=== PATIENT | female | born 1950 | race Two or more races ===

== ENCOUNTER 2017-05-14 09:18 | Day surgery (SDC) | payer MEDICARE, MEDICAID ==
[2017-05-14 09:56] VITALS: BP 125/97
[2017-05-14 11:08] LABS: INR 0.95 (0.5-1.4); PROTHROMBIN TIME (TEST) 9.9 SECONDS (9.5-11.5)
--- NOTE | 2017-05-14 11:29 | History and Physical ---
History of Present Illness - HPI Chief Complaint: DIRECT ADMISSION FOR EXCISION BX LEFT BREAST MASS POSSIBLE MASTECTOMY HPI: THIS IS A 66 YEAR OLD FEMALE WHO IS A RESIDENT OF [facility] WHO IS A DIRECT ADMISSION FOR EXCISION BX LEFT BREAST MASS POSSIBLE MASTECTOMY. UPON EXAMINATION PATIENT IS AWAKE, NONVERBAL, AFEBRILE, IN NO ACUTE DISTRESS. Vital Signs: Last Vital Signs Temp Pulse 73 05/14/17 10:35 Resp 18 05/14/17 10:35 BP 125/97 05/14/17 09:55 Pulse Ox 93 05/14/17 10:35 Past Medical History Cardiovascular: Report: HTN Pulmonary: Report: No Pertinent Hx [employer]: Report: Seizure GI: Report: Gastritis, Other (DYSPHAGIA) Psych: Report: No Pertinent Hx Musculoskeletal: Report: Osteoarthritis Infectious Disease: Report: No Pertinent Hx Other History: profound idd peg status hypercholesteremia oa asthma upper and lower contractures - Past Surgical History Past Surgical History: Other (peg) Family Medical History - Family Member noncontributory History Unknown: Yes (noncontributory) Social History Smoke: No Alcohol: None Drugs: None Lives: Custodial Health Maintenance Health Maintenance: Pneumococcal Vaccine, Mammogram - Allergies Allergies/Adverse Reactions: Allergies Allergy/AdvReac Type Severity Reaction Status Date / Time No Known Allergies Allergy Verified 05/14/17 09:54 Review of Systems - Review of Systems Constitutional: Denies: Fever, Chills Eyes: Denies: Pain, Vision Change ENT: Denies: Ear Pain, Ear Discharge, Nose Pain Respiratory: Denies: Cough, Dry, Shortness of Breath Cardiovascular: Denies: Chest Pain Gastrointestinal: Denies: Nausea, Vomiting Genitourinary: Report: Incontinence. Denies: Dysuria, Frequency Musculoskeletal: Denies: Neck Pain, Shoulder Pain, Arm Pain, Back Pain Skin: Denies: Rash Neurological: Report: Weakness. Denies: Numbness Physical Exam - Physical Exam HEENT: Report: Ears Nose Throat within normal limits Neck: Report: Within normal limits Cardiovascular Systems: Report: +s1/s2 noted Respiratory: Report: Breath Sounds are within normal limits, Clear to Auscultation of lung rodriguez Abdomen: Report: Non-tender to palpation, Bowel Sounds are within normal limits , PEG site is clean Back: Report: Inspection of back is within normal limits. Extremities: Report: Non-tender to palpation. Skin: Report: Warm, Dry, No Rashes noted of the skin Neuro/Psych: Report: Mood affect is within normal limits - Lab Results All Lab Results last 24 hours: Laboratory Last Values PT 9.9 SECONDS (9.5-11.5) 05/14/17 10:40 INR 0.95 (0.5-1.4) 05/14/17 10:40 PTT (Actin FS) 25.6 SECONDS (26.0-38.0) L 05/14/17 10:40 Laboratory Results - last 24 hr 05/14/17 10:40 PT 9.9 INR 0.95 PTT (Actin FS) 25.6 L - Assessment Assessment: LEFT BREAST MASS profound idd peg status hypercholesteremia oa asthma upper and lower contractures - Plan Plan: surgical consult for excision bx left breast mass possible mastectomy ivf for hydration npo for now am labs pain mgmt
[2017-05-14] MEDS ORDERED: Albuterol Nebulizer 2.5mg/3mL IH PRN (11:30)
[2017-05-14] MEDS ORDERED: D5-0.45NS 1,000 ML IV SCH ×2 (11:30→14:53)
[2017-05-14] MEDS ORDERED: Ipratropium Neb 0.5 mg/2.5 mL UD IH PRN (11:30)
--- NOTE | 2017-05-14 11:33 | General Progress Note ---
Subjective - Review of Systems Service Date: 05/14/17 Events since last encounter: suspected mass left breast - unable to palpate patient unable to give info, developmentally disabled discussed with Dr. Griffith will do needle localization as mass is not palpable and US and mammogram results are not definite Objective - Results Recent Labs: Laboratory Last Values PT 9.9 SECONDS (9.5-11.5) 05/14/17 10:40 INR 0.95 (0.5-1.4) 05/14/17 10:40 PTT (Actin FS) 25.6 SECONDS (26.0-38.0) L 05/14/17 10:40 - Physical Exam Vitals and I&O: Vital Signs Temp Pulse 73 05/14/17 10:35 Resp 18 05/14/17 10:35 BP 125/97 05/14/17 09:55 Pulse Ox 93 05/14/17 10:35 Intake & Output 05/13/17 05/14/17 05/14/17 18:59 06:59 18:59 Weight (lbs) 68.492 kg
[2017-05-14] MEDS ORDERED: guaiFENesin 200 MG/10 ML UDC PO PRN (12:31)
--- NOTE | 2017-05-14 12:52 | Diagnostic Imaging Report ---
Exam: Upright examination of chest HISTORY: Preop Findings: Upright examination of chest was reviewed, no prior studies available for comparison. The study demonstrates mild congestive heart failure with superimposed left basilar atelectatic changes with small effusion. Bony thorax remarkable for degenerative osteopenia and degenerative changes shoulder joints bilaterally. IMPRESSION: mild congestion. Left basilar atelectasis small effusion.
[2017-05-15] MEDS ORDERED: Pantoprazole 40 mg/Packet GT SCH (09:00)
[2017-05-15] MEDS ORDERED: POLYETHYLENE GLYCOL 3350 17 GM PACK GT SCH (09:00)
[2017-05-15] MEDS ORDERED: Levothyroxine 0.05 Mg Tab PO SCH (09:00)
[2017-05-15] MEDS ORDERED: Multivitamin Tab PO SCH (09:00)
== END 2017-05-14 17:00 ==
LOC: MSII 09:18 → MSI 09:21 → UNDOADMIN 09:21 → MSII 17:00 → UNDODISIN 17:00
PROVIDERS: ATTEND Specialist
DX: N63 Unspecified lump in breast (principal); M19.90 Unspecified osteoarthritis, unspecified site; E78.00 Pure hypercholesterolemia, unspecified; I10 Essential (primary) hypertension; Z93.1 Gastrostomy status
CPT/HCPCS: 36415-UA; 71010-TC; 85610-TC; 93005; 94760